=== PATIENT | male | born 2000 | race Native Hawaiian/Other Pacific Islander ===

== ENCOUNTER 2021-05-03 13:12 | Emergency (ER) | payer OTHER ==
[~2021-05-03] VITALS: Ht 177.8 cm; Wt 131.5 kg
[2021-05-03] MEDS ORDERED: PREDNISONE 20 M20 M1 PO (14:59)
[2021-05-03 15:19] VITALS: BP 128/74
--- NOTE | 2021-05-03 15:27 | EKG ---
[place] [address] ELECTROCARDIOGRAM REPORT Name: RENETTA PAPPAS Room: [facility]#: [id number] Admission: 05/03/21 Attend Phys: Discharge: 05/03/21 Date of : 00 Date of Service: 05/03/21 1325 Report #: [id number] THIS REPORT FOR: //name// [facility] ED Test Date: 2021-05-03 Test Time: 13:25:14 Pat Name: RENETTA PAPPAS Department: Room: Gender: Body Maker: : [id number] Requested By: Atul Veloz Order Number: [id number] MD: Martinez Black Measurements Intervals [place] Rate: 81 P: -3 [place]: 126 QRS: 65 QRSD: 103 T: 28 QT: 372 QTc: 432 Interpretive Statements Sinus rhythm ST elev, probable normal early repol pattern No previous ECG available for comparison Electronically Signed On 05-03-2021 15:26:57 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
== END 2021-05-03 15:21 | disposition home or self-care (01) ==
LOC: M.ERS 13:12
DX: M54.50 Low back pain, unspecified (principal); R07.89 Other chest pain; X50.0XXA Overexertion from strenuous movement or load, initial encounter; Y93.89 Activity, other specified; Y92.69 Other specified industrial and construction area as the place of occurrence of the external cause; Y99.9 Unspecified external cause status